=== PATIENT | male | born 1990 | race Caucasian/White ===

== ENCOUNTER 2021-07-03 09:23 | Emergency (ER) | payer OTHER ==
[~2021-07-03] VITALS: Ht 190.5 cm; Wt 113.4 kg
[2021-07-03 09:38] VITALS: BP 166/89
== END 2021-07-03 11:02 | disposition home or self-care (01) ==
LOC: M.ERS 09:23
DX: Z23 Encounter for immunization (principal); Z90.89 Acquired absence of other organs; Z98.890 Other specified postprocedural states